=== PATIENT | female | born 1985 | race Caucasian/White ===

== ENCOUNTER 2016-10-23 06:40 | Inpatient (IN) | payer BC ==
[~2016-10-23] VITALS: Ht 157.5 cm; Wt 59.0 kg
[2016-10-23] MEDS: IBUPROFEN 600 MG TABLET PO SCH ×2 (06:30→17:51)
[2016-10-23] MEDS ORDERED: NALBUPHINE HCL 10 MG/ML AMP ONE (06:55)
[2016-10-23] MEDS ORDERED: LR 1,000 ML IV ONE (06:55)
[2016-10-23] MEDS ORDERED: LR 1,000 ML IV SCH (06:55)
[2016-10-23] MEDS ORDERED: NALBUPHINE HCL 10 MG/ML AMP IVP PRN (07:00)
[2016-10-23 07:14] LABS: HEMATOCRIT 35.1 % (36-48); HEMOGLOBIN 12.4 g/dL (12.0-16.0); MEAN CORPUSCULAR HEMOGLOBIN 33 pg (27-31); MEAN CORPUSCULAR HGB CONC 36 % (32-36); MEAN CORPUSCULAR VOLUME 92 fL (79.0-98.0); PLATELET COUNT (AUTO) 182 K/uL (130-430); RED BLOOD CELL COUNT(AUTO) 3.81 MIL/uL (4.2-6.2); RED CELL DISTRIBUTION WIDTH 16.6 % (9.0-15.0); WHITE BLOOD COUNT (AUTO) 24.2 K/uL (4.8-10.8)
[2016-10-23 08:02] LABS: BASOPHILS % (MANUAL) 0 % (0-2); EOSINOPHILS % (MANUAL) 0 % (0-7); LYMPHOCYTES % (MANUAL) 5 % (20-46); MONOCYTES % (MANUAL) 4 % (0-11)
[2016-10-23] MEDS ORDERED: OXYTOCIN/NORMAL SALINE 1,000 ML IV SCH (08:04)
[2016-10-23] MEDS ORDERED: OXYTOCIN/NORMAL SALINE 1,000 ML IV ONE (08:04)
[2016-10-23] MEDS ORDERED: ANUSOL 1 EA SUPP.RECT (PREPARATION H) RC PRN (08:15)
[2016-10-23] MEDS ORDERED: GLYCERIN/WITCH HAZEL (TUCKS PADS) TP PRN (08:15)
[2016-10-23] MEDS ORDERED: SENNOSIDES/DOCUSATE SODIUM 1 TAB TABLET(SENOKOT-S) PO PRN (08:15)
[2016-10-23] MEDS ORDERED: HYDROCORTISONE 0.5%, 28.35 GM TOPICAL CREAM TP PRN (08:15)
[2016-10-23] MEDS ORDERED: LANOLIN 7 GM OINT. TP PRN (08:15)
[2016-10-23] MEDS ORDERED: METHYLERGONOVINE MALEATE 0.2 MG TABLET PO PRN (08:15)
[2016-10-23] MEDS ORDERED: RHO(D) IMMUNE GLOBULIN/MALTOSE 1500 UNITS/1.3 ML (WINHRO) IM PRN (08:15)
[2016-10-23] MEDS ORDERED: OXYCODONE/ACETAMINOPHEN 5-325 TABLET PO PRN ×2 (08:15)
[2016-10-23] MEDS ORDERED: MEASLES,MUMPS&RUBELLA VACC/PF 12500 UNIT/0.5 ML VIAL SUBQ PRN (08:15)
[2016-10-23] MEDS ORDERED: DERMOPLAST SPRAY TP PRN (08:15)
[2016-10-23] MEDS ORDERED: HYDROcodone/ACETAMIN 5-325 MG TAB (NORCO/ VICODIN) PO PRN (08:15)
[2016-10-23 14:29] VITALS: BP_SYST 134
[2016-10-23] MEDS ORDERED: LIDOCAINE PF 1% 30ML(POUR BTL) INJ ONE (15:00)
[2016-10-23] MEDS ORDERED: MINERAL OIL 30 ML UDC ONE (15:00)
[2016-10-23] MEDS: DOCUSATE SODIUM 100 MG CAPSULE PO PRN (17:50)
[2016-10-23] MEDS ORDERED: TEMAZEPAM 15 MG CAPSULE PO PRN (21:00)
[2016-10-24] MEDS: IBUPROFEN 600 MG TABLET PO SCH ×4 (00:14→18:46)
[2016-10-24 07:15] LABS: HEMATOCRIT 25.9 % (36-48); HEMOGLOBIN 8.9 g/dL (12.0-16.0); MEAN CORPUSCULAR HEMOGLOBIN 32 pg (27-31); MEAN CORPUSCULAR HGB CONC 35 % (32-36); MEAN CORPUSCULAR VOLUME 94 fL (79.0-98.0); PLATELET COUNT (AUTO) 145 K/uL (130-430); RED BLOOD CELL COUNT(AUTO) 2.76 MIL/uL (4.2-6.2); RED CELL DISTRIBUTION WIDTH 16.8 % (9.0-15.0); WHITE BLOOD COUNT (AUTO) 22.1 K/uL (4.8-10.8)
[2016-10-24 08:56] LABS: BASOPHILS % (MANUAL) 0 % (0-2); EOSINOPHILS % (MANUAL) 2 % (0-7); LYMPHOCYTES % (MANUAL) 24 % (20-46); MONOCYTES % (MANUAL) 3 % (0-11)
[2016-10-24] MEDS: DOCUSATE SODIUM 100 MG CAPSULE PO PRN (12:36)
[2016-10-24] MEDS ORDERED: DIPH-TET-PERTUS Vaccine 0.5 ML VIAL/Tdap (ADACEL) I.M. PRN (19:30)
[2016-10-25] MEDS: IBUPROFEN 600 MG TABLET PO SCH ×3 (00:08→12:02)
[2016-10-25] MEDS: DOCUSATE SODIUM 100 MG CAPSULE PO PRN (12:01)
== END 2016-10-25 14:20 | disposition home or self-care (01) | DRG 775 ==
LOC: SPU 06:40
PROVIDERS: ADMIT Specialist; ATTEND Specialist
PROC: 10D07Z6 Extraction of Products of Conception, Vacuum, Via Natural or Artificial Opening (ICD-10-PCS; principal; 2016-10-23)
PROC: 0W8NXZZ Division of Female Perineum, External Approach (ICD-10-PCS; 2016-10-23)
DX: O77.0 Labor and delivery complicated by meconium in amniotic fluid (principal); O76 Abnormality in fetal heart rate and rhythm complicating labor and delivery; Z37.0 Single live birth; Z3A.41 41 weeks gestation of pregnancy
CPT/HCPCS: 36415; 81002-TC; 85007; 85027; 86592; 86886; 86900; 86901; J2001; J2300